=== PATIENT | female | born 1975 | race Caucasian/White ===

== ENCOUNTER → 2022-01-13 | Day surgery (SDC) | payer MEDICARE, MEDICAID ==
[~2022-01-13] VITALS: Ht 157.5 cm; Wt 83.9 kg
[~2022-01-13] MED LIST: AMLO5TAB88 PO; ATOR20TA65 PO; ATROPINE SULFATE 0.4MG/ML VIAL IV PRN; BACITRACIN 15GM TUBE TOP ONE; BUME2TAB7 PO; BUPIVACAINE HCL 0.5% (5MG/ML) 50ML ONE; CALC0.253 PO; DEXAMETHASONE 4MG/ML 1ML VIAL ONE; EPHEDRINE SULFATE 50MG/ML VIAL ONE; FENTANYL CITRATE/PF 50MCG/ML 2ML VIAL IV PRN; FENTANYL CITRATE/PF 50MCG/ML 2ML VIAL ONE; FOLI0.8T23 PO; GLIP5TAB12 PO; HEPARIN SODIUM 1,000 UNIT/1ML VIAL IV ONE; KETOROLAC 30MG/ML VIAL ONE; LABE200T9 PO; LIDOCAINE HCL 1% 50ML VIAL (10MG/ML) ONE; LIDOCAINE HCL/PF 2% 20MG/ML 5 ML/VIAL ONE; LISI40TA13 PO; MIDAZOLAM HCL 2 MG/2 ML VIAL ONE; ONDANSETRON HCL 4MG/2ML INJ ONE; POLYMYXIN B SULFATE 500000 UNITS/VIAL ONE; PROPOFOL 10MG/ML 100ML 0 ML IV ONE; PROPOFOL 200MG/20ML VIAL IV ONE; PROTAMINE SULFATE 10MG/ML VIAL 5ML IV ONE; REN800 PO; SODIUM CHLORIDE 0.9% 500 ML IV ONE; THROMBIN (BOVINE) 5000 UNITS/VIAL TOP ONE
[2022-01-13 09:46] LABS: BASOPHILS % 0.7 % (0.0-2.0); EOSINOPHILS % 3.1 % (0.0-5.0); HEMATOCRIT. 37.7 % (36.0-48.0); HEMOGLOBIN. 12.8 g/dL (12.0-16.0); LYMPHOCYTES % 22.8 % (20.0-50.0); MEAN CORPUSCULAR HEMOGLOBIN 31.6 pg (28.0-32.0); MEAN CORPUSCULAR VOLUME 92.9 fL (81.0-99.0); MEAN PLATELET VOLUME 8.2 fl (7.4-10.4); MONOCYTES % 7.1 % (2.0-8.0); NEUTROPHILS % 66.3 % (40.0-76.0); PLATELET 215 x1000/uL (130-400); RED BLOOD CELL COUNT 4.06 mill/uL (4.2-5.4); RED CELL DISTRIBUTION WIDTH 12.9 % (11.6-14.6)
[2022-01-13 10:01] LABS: INR 1.1; PARTIAL THROMBOPLASTIN TIME 29.3 sec (23.4-31.0); PROTHROMBIN TIME 11.6 sec (9.6-11.0)
[2022-01-13 10:08] LABS: UCG SCREEN NEGATIVE
== END | disposition home or self-care (01) ==
LOC: OR 09:10
PROVIDERS: ATTEND Surgery Vascular Surgery
DX: I12.0 Hypertensive chronic kidney disease with stage 5 chronic kidney disease or end stage renal disease (principal); N18.6 End stage renal disease; E11.22 Type 2 diabetes mellitus with diabetic chronic kidney disease; E78.00 Pure hypercholesterolemia, unspecified; I77.0 Arteriovenous fistula, acquired; Z79.84 Long term (current) use of oral hypoglycemic drugs; Z79.899 Other long term (current) drug therapy; Z98.890 Other specified postprocedural states; Z20.822 Contact with and (suspected) exposure to COVID-19
CPT/HCPCS: 36415; 36830; 80048; 81025; 85025; 85610; 85730; 87426; 93005; C1768; C9803; J1100; J1644; J1885; J2250; J2405; J2704; J2720; J3010; J3490; J7030

== ENCOUNTER 2022-02-02 22:58 | Emergency (ER) | payer MEDICARE, MEDICAID ==
[~2022-02-02] VITALS: Ht 157.5 cm; Wt 84.3 kg
[~2022-02-02 22:58] MED LIST changes: -ATROPINE SULFATE 0.4MG/ML VIAL IV PRN; -BACITRACIN 15GM TUBE TOP ONE; -BUPIVACAINE HCL 0.5% (5MG/ML) 50ML ONE; -DEXAMETHASONE 4MG/ML 1ML VIAL ONE; -EPHEDRINE SULFATE 50MG/ML VIAL ONE; -FENTANYL CITRATE/PF 50MCG/ML 2ML VIAL IV PRN; -FENTANYL CITRATE/PF 50MCG/ML 2ML VIAL ONE; -HEPARIN SODIUM 1,000 UNIT/1ML VIAL IV ONE; -KETOROLAC 30MG/ML VIAL ONE; -LIDOCAINE HCL 1% 50ML VIAL (10MG/ML) ONE; -LIDOCAINE HCL/PF 2% 20MG/ML 5 ML/VIAL ONE; -MIDAZOLAM HCL 2 MG/2 ML VIAL ONE; -ONDANSETRON HCL 4MG/2ML INJ ONE; -POLYMYXIN B SULFATE 500000 UNITS/VIAL ONE; -PROPOFOL 10MG/ML 100ML 0 ML IV ONE; -PROPOFOL 200MG/20ML VIAL IV ONE; -PROTAMINE SULFATE 10MG/ML VIAL 5ML IV ONE; -SODIUM CHLORIDE 0.9% 500 ML IV ONE; -THROMBIN (BOVINE) 5000 UNITS/VIAL TOP ONE
[2022-02-03] MEDS ORDERED: HYDR-4001 MT (02:04)
[2022-02-03] MEDS ORDERED: HYDROCODONE/ACETAMINOPHEN 10/325MG TABLET PO ONE (02:15)
[2022-02-03] MEDS ORDERED: GABAPENTIN 300MG CAPSULE PO ONE (02:15)
[2022-02-03 02:17] VITALS: BP 136/81
== END 2022-02-03 02:19 | disposition home or self-care (01) ==
LOC: ER 22:58
DX: G89.18 Other acute postprocedural pain (principal); R60.0 Localized edema; I12.9 Hypertensive chronic kidney disease with stage 1 through stage 4 chronic kidney disease, or unspecified chronic kidney disease; E11.22 Type 2 diabetes mellitus with diabetic chronic kidney disease; N18.9 Chronic kidney disease, unspecified; E78.00 Pure hypercholesterolemia, unspecified; Z98.890 Other specified postprocedural states; Z79.01 Long term (current) use of anticoagulants
CPT/HCPCS: 99283